=== PATIENT | female | born 1960 | race Caucasian/White ===

== ENCOUNTER 2019-01-29 23:00 | Emergency (ER) | payer OTHER ==
[~2019-01-29] VITALS: Ht 170.2 cm; Wt 72.6 kg
[~2019-01-29 23:00] MED LIST: FLEXERIL PO; IBUPROFEN 800800 MG PO; NOHOMEMEDICATIONS; PERCOCET 5-3251 EACH PO
[2019-01-30 01:31] VITALS: BP 141/60
[2019-01-30] MEDS ORDERED: CYCLOBENZAPRINE5 MG PO (06:09)
[2019-01-30] MEDS ORDERED: MEDROLDOSEPACK PO (06:09)
== END 2019-01-30 01:32 | disposition left against medical advice (07) ==
LOC: M.ERS 23:00
DX: Z53.21 Procedure and treatment not carried out due to patient leaving prior to being seen by health care provider (principal)

== ENCOUNTER 2019-01-30 03:53 | Emergency (ER) | payer OTHER ==
[~2019-01-30] VITALS: Ht 170.2 cm; Wt 74.8 kg
[2019-01-30] MEDS ORDERED: CYCLOBENZAPRINE5 MG PO (06:09)
[2019-01-30] MEDS ORDERED: MEDROLDOSEPACK PO (06:09)
[2019-01-30 06:23] VITALS: BP 132/72
== END 2019-01-30 06:23 | disposition home or self-care (01) ==
LOC: M.ERS 03:53
DX: M54.5 Low back pain (principal); M06.9 Rheumatoid arthritis, unspecified; Z88.1 Allergy status to other antibiotic agents; Z88.8 Allergy status to other drugs, medicaments and biological substances; Z90.49 Acquired absence of other specified parts of digestive tract; Z90.710 Acquired absence of both cervix and uterus; W18.39XA Other fall on same level, initial encounter; Y93.89 Activity, other specified; Y92.89 Other specified places as the place of occurrence of the external cause; Y99.8 Other external cause status